=== PATIENT | male | born 1985 | race Caucasian/White ===

== ENCOUNTER 2016-10-07 05:47 | Day surgery (SDC) | payer OTHER ==
[~2016-10-07] VITALS: Ht 177.8 cm; Wt 97.6 kg
[2016-10-07] MEDS ORDERED: FLONASE ALLERG9.9 ML BOTH NARES (06:09)
[2016-10-07 06:16] VITALS: BP 164/88
[2016-10-07] MEDS ORDERED: PERCOCET 5/31 TABLET PO (08:41)
[2016-10-07 09:15] VITALS: BP 120/69
== END 2016-10-07 09:30 | disposition home or self-care (01) ==
LOC: SDC 05:47 → EDSTATUS 15:45 → 2SOUTH 15:45 → SDC 15:46
PROC: 0JB60ZZ Excision of Chest Subcutaneous Tissue and Fascia, Open Approach (ICD-10-PCS; principal; 2016-10-07)
DX: D17.9 Benign lipomatous neoplasm, unspecified (principal)
CPT/HCPCS: 88304; J0690; J2250; J2405; J3010; S0020